=== PATIENT | female | born 1935 | race Caucasian/White ===

== ENCOUNTER → 2017-05-31 13:54 | Outpatient (CLI) | payer MEDICARE, BC ==
[2009-10-29 14:41] VITALS: BMI 27.6
[2017-05-31 14:26] LABS: BASOPHILS 0.1 % (0-2); EOSINOPHILS 0.9 % (0-7); HEMATOCRIT 37.7 % (36.0-48.0); HEMOGLOBIN 12.5 g/dL (12-16); IMMATURE GRANULOCYTES 0.1 % (0-5); LYMPHOCYTES 36.5 % (15-50); MCH 30.6 pg (26.0-34.0); MCHC 33.2 g/dL (31.0-37.0); MCV 92.2 fL (80.0-100.0); MEAN PLATELET VOLUME 9.7 fL (7.4-10.4); MONOCYTES 9.2 % (2-11); NEUTROPHILS 53.2 % (40-80); PLATELET COUNT 175 10x3/uL (130-400); RBC 4.09 10x6/uL (4.00-5.40); RDW 12.3 % (11.5-14.5); WBC 7.1 10x3/uL (4.8-10.8)
[2017-05-31 14:56] LABS: ALBUMIN 3.9 g/dL (3.4-5.0); ALKALINE PHOSPHATASE 90 U/L (46-116); ALT (SGPT) 21 U/L (10-68); CALC OSMOLALITY 287 mosm/kg (275-300); CALCIUM 10.6 mg/dL (8.5-10.1); CARBON DIOXIDE 30.4 mmol/L (21.0-32.0); CHLORIDE - SERUM 107 mmol/L (98-107); CHOL - HDL RATIO 3.3 ratio (2.3-4.1); CHOLESTEROL, TOTAL 143 mg/dL (0-200); CREATININE - SERUM 0.6 mg/dL (0.6-1.3); GLUCOSE 102 mg/dL (74-106); HDL CHOLESTEROL 43 mg/dL (32-96); LDL CHOLESTEROL 73 mg/dL (0-100); LDL-HDL RATIO 1.7 ratio (1.5-3.5); POTASSIUM - SERUM 4.4 mmol/L (3.5-5.1); PROTEIN - SERUM 7.3 g/dL (6.4-8.2); SODIUM 142 mmol/L (136-145); THYROID STIMULATING HORMONE 0.05 uIU/mL (0.36-3.74); TRIGLYCERIDE 138 mg/dL (30-200); UREA NITROGEN 27 mg/dL (7-18); eGFR NON AFRICAN AMERICAN > 90 mL/min (90-120)
== END | disposition home or self-care (01) ==
LOC: D.LAB 08:30
PROVIDERS: Family Medicine
DX: Z00.00 Encounter for general adult medical examination without abnormal findings (principal); I25.10 Atherosclerotic heart disease of native coronary artery without angina pectoris; E55.9 Vitamin D deficiency, unspecified; E78.5 Hyperlipidemia, unspecified; I49.9 Cardiac arrhythmia, unspecified

== ENCOUNTER → 2017-06-30 13:33 | Outpatient (CLI) | payer MEDICARE, BC ==
[2009-10-29 14:41] VITALS: BMI 27.6
[2017-06-30 15:02] LABS: T4 THYROXIN - FREE 0.96 ng/dL (0.76-1.46); THYROID STIMULATING HORMONE 0.1 uIU/mL (0.36-3.74)
== END | disposition home or self-care (01) ==
LOC: D.LAB 13:33
PROVIDERS: Family Medicine
DX: E55.9 Vitamin D deficiency, unspecified (principal); E05.90 Thyrotoxicosis, unspecified without thyrotoxic crisis or storm

== ENCOUNTER → 2017-07-15 14:11 | Outpatient (CLI) | payer MEDICARE, BC ==
[2009-10-29 14:41] VITALS: BMI 27.6
[2017-07-15 15:27] LABS: APPEARANCE CLEAR (CLEAR); COLOR YELLOW (YELLOW); GLUCOSE NEGATIVE (NEGATIVE); KETONE NEGATIVE (NEGATIVE); NITRITE NEGATIVE (NEGATIVE); PROTEIN NEGATIVE (NEGATIVE); UROBILINOGEN NORMAL (NORMAL)
[2017-07-15 15:28] LABS: BILIRUBIN NEGATIVE (NEGATIVE)
[2017-07-15 15:29] LABS: BACTERIA MANY /hpf (NONE SEEN); EPITHELIAL CELLS 0-5 /hpf (0-5); RED CELLS - URINE 0-5 /hpf (0-5); WHITE CELLS - URINE 0-5 /hpf (0-5)
== END | disposition home or self-care (01) ==
LOC: D.LAB 14:11
PROVIDERS: Family Medicine
DX: N39.0 Urinary tract infection, site not specified (principal); M54.5 Low back pain

== ENCOUNTER → 2018-03-31 15:54 | Outpatient (CLI) | payer MEDICARE, BC ==
[2009-10-29 14:41] VITALS: BMI 27.6
== END | disposition home or self-care (01) ==
LOC: D.RAD 15:54
DX: M25.552 Pain in left hip (principal); M25.551 Pain in right hip

== ENCOUNTER → 2018-04-04 12:54 | Outpatient (CLI) | payer MEDICARE, BC ==
[2009-10-29 14:41] VITALS: BMI 27.6
== END | disposition home or self-care (01) ==
LOC: D.RAD 12:54
DX: M25.512 Pain in left shoulder (principal)

== ENCOUNTER → 2018-06-06 09:48 | Outpatient (CLI) | payer MEDICARE, BC ==
[2009-10-29 14:41] VITALS: BMI 27.6
[2018-06-06 10:22] LABS: BASOPHILS 0.2 % (0-2); EOSINOPHILS 0.8 % (0-7); HEMATOCRIT 34.5 % (36.0-48.0); HEMOGLOBIN 11.1 g/dL (12-16); LYMPHOCYTES 32.4 % (15-50); MCH 29.2 pg (26.0-34.0); MCHC 32.2 g/dL (31.0-37.0); MCV 90.8 fL (80.0-100.0); MEAN PLATELET VOLUME 9.8 fL (7.4-10.4); MONOCYTES 10.5 % (2-11); NEUTROPHILS 56.1 % (40-80); PLATELET COUNT 151 10x3/uL (130-400); RDW 13.2 % (11.5-14.5)
[2018-06-06 10:39] LABS: APPEARANCE CLEAR (CLEAR); BILIRUBIN NEGATIVE (NEGATIVE); COLOR DK YELLOW (YELLOW); GLUCOSE NEGATIVE (NEGATIVE); KETONE NEGATIVE (NEGATIVE); NITRITE NEGATIVE (NEGATIVE); PROTEIN NEGATIVE (NEGATIVE); SPECIFIC GRAVITY 1.025 (1.005-1.020); UROBILINOGEN NORMAL (NORMAL)
[2018-06-06 10:48] LABS: ALBUMIN 3.4 g/dL (3.4-5.0); ALKALINE PHOSPHATASE 91 U/L (46-116); ALT (SGPT) 25 U/L (10-68); BILIRUBIN - TOTAL 0.55 mg/dL (0.2-1.3); CALC OSMOLALITY 290 mosm/kg (275-300); CALCIUM 9.3 mg/dL (8.5-10.1); CARBON DIOXIDE 27.8 mmol/L (21.0-32.0); CHLORIDE - SERUM 110 mmol/L (98-107); CHOL - HDL RATIO 2.1 ratio (2.3-4.1); CHOLESTEROL, TOTAL 126 mg/dL (0-200); CREATININE - SERUM 0.6 mg/dL (0.6-1.3); GLUCOSE 86 mg/dL (74-106); HDL CHOLESTEROL 61 mg/dL (32-96); LDL CHOLESTEROL 50 mg/dL (0-100); LDL-HDL RATIO 0.8 ratio (1.5-3.5); POTASSIUM - SERUM 4.1 mmol/L (3.5-5.1); PROTEIN - SERUM 6.7 g/dL (6.4-8.2); SODIUM 143 mmol/L (136-145); THYROID STIMULATING HORMONE 0.17 uIU/mL (0.36-3.74); TRIGLYCERIDE 79 mg/dL (30-200); UREA NITROGEN 31 mg/dL (7-18); eGFR NON AFRICAN AMERICAN > 90 mL/min (90-120)
== END | disposition home or self-care (01) ==
LOC: D.LAB 09:48
PROVIDERS: Family Medicine
DX: Z00.00 Encounter for general adult medical examination without abnormal findings (principal); I25.10 Atherosclerotic heart disease of native coronary artery without angina pectoris; E05.90 Thyrotoxicosis, unspecified without thyrotoxic crisis or storm; E55.9 Vitamin D deficiency, unspecified; R10.9 Unspecified abdominal pain

== ENCOUNTER → 2018-06-08 14:28 | Outpatient (CLI) | payer MEDICARE, BC ==
[2009-10-29 14:41] VITALS: BMI 27.6
[2018-06-08 15:25] LABS: T4 THYROXIN - FREE 0.93 ng/dL (0.76-1.46)
== END | disposition home or self-care (01) ==
LOC: D.LAB 08:00
PROVIDERS: Family Medicine
DX: E05.90 Thyrotoxicosis, unspecified without thyrotoxic crisis or storm (principal)

== ENCOUNTER → 2019-01-10 12:14 | Outpatient (CLI) | payer MEDICARE, BC ==
[2009-10-29 14:41] VITALS: BMI 27.6
[~2019-01-10 12:14] MED LIST: COREG12.5 MG PO; DONEPEZIL HCL5 MG PO; DURAGESIC1 PATCH .7 TRANSDERM; HYDROCODON-ACE1 EA10 PO; LIPITOR80 MG PO; MOBIC7.5 MG PO; PLAVIX75 MG PO; ZESTRIL10 MG PO
[2019-01-10 12:41] LABS: HEMATOCRIT 38.6 % (36.0-48.0); HEMOGLOBIN 12.4 g/dL (12-16); MCH 29.5 pg (26.0-34.0); MCHC 32.1 g/dL (31.0-37.0); MCV 91.9 fL (80.0-100.0); MEAN PLATELET VOLUME 9.9 fL (7.4-10.4); RDW 12.7 % (11.5-14.5); WBC 7.4 10x3/uL (4.8-10.8)
[2019-01-10 12:45] LABS: PLATELET COUNT 208 10x3/uL (130-400)
[2019-01-10 13:01] LABS: APPEARANCE SL CLDY (CLEAR); BILIRUBIN NEGATIVE (NEGATIVE); CALC OSMOLALITY 286 mosm/kg (275-300); CALCIUM 10.2 mg/dL (8.5-10.1); CARBON DIOXIDE 29.8 mmol/L (21.0-32.0); CHLORIDE - SERUM 105 mmol/L (98-107); COLOR YELLOW (YELLOW); CREATININE - SERUM 0.6 mg/dL (0.6-1.3); GLUCOSE 106 mg/dL (74-106); GLUCOSE NEGATIVE (NEGATIVE); KETONE NEGATIVE (NEGATIVE); NITRITE NEGATIVE (NEGATIVE); POTASSIUM - SERUM 4.4 mmol/L (3.5-5.1); PROTEIN NEGATIVE (NEGATIVE); SODIUM 141 mmol/L (136-145); SPECIFIC GRAVITY 1.025 (1.005-1.020); UREA NITROGEN 28 mg/dL (7-18); UROBILINOGEN NORMAL (NORMAL); eGFR NON AFRICAN AMERICAN > 90 mL/min (90-120)
[2019-01-10 13:02] LABS: BACTERIA MANY /hpf (NONE SEEN); MUCUS >1+ /lpf (NONE SEEN); RED CELLS - URINE OCC /hpf (0-5); WHITE CELLS - URINE OCC /hpf (0-5)
[2019-01-10 13:03] LABS: HYALINE CAST OCC /lpf (NONE SEEN)
[2019-01-10 14:04] LABS: LYMPHOCYTES 24 % (15-50); MONOCYTES 6 % (2-11); NEUTROPHILS 51 % (40-80); PLATELET ESTIMATE NORMAL
[2019-01-10 14:05] LABS: ANISOCYTOSIS OCC; ROULEAUX OCC
== END | disposition home or self-care (01) ==
LOC: D.LAB 12:14
PROVIDERS: ATTEND Family Medicine
DX: N30.00 Acute cystitis without hematuria (principal); C43.9 Malignant melanoma of skin, unspecified; J30.9 Allergic rhinitis, unspecified; M48.00 Spinal stenosis, site unspecified

== ENCOUNTER 2019-01-18 09:00 | Day surgery (SDC) | payer MEDICARE, BC ==
[2019-01-17 14:41] LABS: BASOPHILS 0.2 % (0-2); EOSINOPHILS 0.6 % (0-7); HEMATOCRIT 37.4 % (36.0-48.0); HEMOGLOBIN 12.2 g/dL (12-16); IMMATURE GRANULOCYTES 0.2 % (0-5); LYMPHOCYTES 25.5 % (15-50); MCHC 32.6 g/dL (31.0-37.0); MCV 92.1 fL (80.0-100.0); MONOCYTES 9.5 % (2-11); PLATELET COUNT 185 10x3/uL (130-400); RBC 4.06 10x6/uL (4.00-5.40); RDW 12.6 % (11.5-14.5); WBC 6.2 10x3/uL (4.8-10.8)
[2019-01-17 14:58] LABS: ANION GAP 12.3 mmol/L (8-16); CALCIUM 10.5 mg/dL (8.5-10.1); CARBON DIOXIDE 29.2 mmol/L (21.0-32.0); CREATININE - SERUM 1.4 mg/dL (0.6-1.3); POTASSIUM - SERUM 5.5 mmol/L (3.5-5.1)
[2019-01-17 15:47] LABS: APPEARANCE CLEAR (CLEAR); BILIRUBIN NEGATIVE (NEGATIVE); COLOR YELLOW (YELLOW); GLUCOSE NEGATIVE (NEGATIVE); KETONE NEGATIVE (NEGATIVE); NITRITE NEGATIVE (NEGATIVE); PROTEIN NEGATIVE (NEGATIVE); UROBILINOGEN NORMAL (NORMAL)
[2019-01-17 16:02] LABS: APTT 26.6 SECONDS (22.8-39.4); INR 1.09 (0.85-1.17); PROTIME 13.6 SECONDS (11.6-15.0)
[~2019-01-18] VITALS: Ht 152.4 cm; Wt 61.7 kg
--- NOTE | ~2019-01-18 | OP ---
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 POSTOPERATIVE DIAGNOSIS: Lumbar spinal stenosis at L3-L4 and the left secondary to synovial cyst formation and spondylosis. PROCEDURE: Lumbar laminectomy, medial facetectomy and foraminotomy L3-L4 on the left, removed resection of synovial cyst. SURGEON: Amita Marinelli MD DESCRIPTION AND TECHNIQUE: After induction of general endotracheal anesthesia, the patient was rolled prone on a Aydin frame. Lumbar spine was prepped and draped in usual sterile fashion. Fluoroscopic x-ray and spinal needle localized at L3-L4 interspace on the left side. After infiltration of 1:100,000 epinephrine and 1% lidocaine, a stab incision was created in the skin at L3-L4 on the left. A series of dilators were used to advance the METRx retractor at the L3-L4 interspace on the left. The level was confirmed with fluoroscopic x-ray. A microscope and the Midas Randy drill were used to perform laminotomy, medial facetectomy, foraminotomy at L3-L4 on the left. Hypertrophied ligamentum flavum was removed with Cloward rongeurs. In the process of removing the ligamentum flavum, synovial cyst encountered. This was carefully dissected away from the dura with a Rhoton microdissectors. Good decompression of the left L3 and L4 nerve roots was obtained. Meticulous hemostasis was maintained throughout the wound. The wound was irrigated with copious amounts of Ancef irrigant solution. The fascia was closed with 3-0 Vicryl suture, the subdermal layer was closed with 3-0 Vicryl suture. The skin was closed with jeanna. A sterile dressing was applied to the wound. The patient was awakened in good condition, taken to recovery. All counts were reported as correct. Estimated blood loss was minimal. TRANSINT:[id number] Voice Confirmation ID: [id number] DOCUMENT ID: [id number] AMITA MARINELLI MD CC: [id number] DICTATION DATE: 01/22/19 0738 PERSONAL DEVELOPMENT COACH: 01/22/1909 [facility] 01/18/[address] [place] [address]
[2019-01-18 10:43] VITALS: Ht 152.4 cm; Wt 61.7 kg
--- NOTE | 2019-01-18 13:39 | NUR ---
PATIENT HAS BANDAID ON RIGHT CHECK, STATED HAD MELANOMA CUT OFF, ALSO HAS ONE ON LEFT ARM, BRUISING NOTED ON LEFT LOWER CHIN AREA, YELITZARMAGY.
--- NOTE | 2019-01-18 15:59 | NUR ---
1525-RECD TO ROOM, DROWSY, AROUSES EASILY. DENIES PAIN. O2 ON AT 2L PER NC. 1550-DR BARNETT IN TO SEE PATIENT AND FAMILY.
[2019-01-18] MEDS ORDERED: HYDROCODON-ACE1 EA10 PO ×2 (17:07→17:08)
--- NOTE | 2019-01-18 17:20 | NUR ---
PATIENT AMBULATES TO BATHROOM WITH STAND-BY ASSIST AND VOIDS LARGE AMOUNT IN TOILET WITHOUT DIFFICULTY. RIGHT ARM PIV DC'D WITH TIP INTACT. PATIETN DRESSING IN PERSONAL CLOTHIGN WITH DAUGHTER'S ASSISTANCE
== END 2019-01-18 17:45 | disposition home or self-care (01) ==
LOC: D.OPS 09:00
PROVIDERS: Anesthesiology; ATTEND Neurological Surgery
DX: M48.061 Spinal stenosis, lumbar region without neurogenic claudication (principal); M71.38 Other bursal cyst, other site; M47.896 Other spondylosis, lumbar region; Z01.812 Encounter for preprocedural laboratory examination

== ENCOUNTER → 2019-02-28 15:40 | Outpatient (CLI) | payer MEDICARE, BC ==
[2019-01-18 10:43] VITALS: BMI 26.6
== END | disposition home or self-care (01) ==
LOC: D.MRI 15:30
PROVIDERS: ATTEND Orthopaedic Surgery
DX: R22.42 Localized swelling, mass and lump, left lower limb (principal)

== ENCOUNTER → 2019-04-25 12:10 | Outpatient (CLI) | payer MEDICARE, BC ==
[2019-01-18 10:43] VITALS: BMI 26.6
[2019-04-25 12:51] LABS: BASOPHILS 0.1 % (0-2); EOSINOPHILS 0.5 % (0-7); HEMATOCRIT 37.8 % (36.0-48.0); HEMOGLOBIN 12.5 g/dL (12-16); IMMATURE GRANULOCYTES 0.1 % (0-5); LYMPHOCYTES 30.8 % (15-50); MCH 29.9 pg (26.0-34.0); MCHC 33.1 g/dL (31.0-37.0); MCV 90.4 fL (80.0-100.0); MEAN PLATELET VOLUME 10.3 fL (7.4-10.4); MONOCYTES 9.5 % (2-11); PLATELET COUNT 161 10x3/uL (130-400); RBC 4.18 10x6/uL (4.00-5.40); RDW 12.4 % (11.5-14.5); WBC 8.5 10x3/uL (4.8-10.8)
[2019-04-25 13:03] LABS: ANION GAP 10.5 mmol/L (8-16); BILIRUBIN - TOTAL 0.61 mg/dL (0.2-1.3); CALCIUM 10.9 mg/dL (8.5-10.1); CARBON DIOXIDE 27.9 mmol/L (21.0-32.0); CREATININE - SERUM 2.1 mg/dL (0.6-1.3); POTASSIUM - SERUM 5.4 mmol/L (3.5-5.1); PROTEIN - SERUM 7.2 g/dL (6.4-8.2)
== END | disposition home or self-care (01) ==
LOC: D.LAB 12:10
PROVIDERS: ATTEND Family Medicine
DX: R11.0 Nausea (principal); C43.9 Malignant melanoma of skin, unspecified; M47.812 Spondylosis without myelopathy or radiculopathy, cervical region; G60.9 Hereditary and idiopathic neuropathy, unspecified

== ENCOUNTER → 2019-05-04 10:09 | Outpatient (CLI) | payer MEDICARE, BC ==
[2019-01-18 10:43] VITALS: BMI 26.6
[2019-05-04 10:50] LABS: ANION GAP 8.1 mmol/L (8-16); CALCIUM 10.3 mg/dL (8.5-10.1); CARBON DIOXIDE 30.3 mmol/L (21.0-32.0); CREATININE - SERUM 0.9 mg/dL (0.6-1.3); POTASSIUM - SERUM 4.4 mmol/L (3.5-5.1)
== END | disposition home or self-care (01) ==
LOC: D.LAB 10:09
PROVIDERS: ATTEND Family Medicine
DX: R94.5 Abnormal results of liver function studies (principal)

== ENCOUNTER 2020-05-08 10:29 | Emergency (ER) | payer MEDICARE, BC ==
[~2020-05-08] VITALS: Ht 152.4 cm; Wt 50.0 kg
[2020-05-08 10:33] VITALS: Ht 152.4 cm; Wt 50.0 kg
[2020-05-08 12:35] VITALS: BP 128/58
== END 2020-05-08 12:35 | disposition home or self-care (01) ==
LOC: D.ER 10:29
DX: S01.01XA Laceration without foreign body of scalp, initial encounter (principal); V89.2XXA Person injured in unspecified motor-vehicle accident, traffic, initial encounter; Y93.9 Activity, unspecified; Y92.9 Unspecified place or not applicable

== ENCOUNTER → 2020-12-16 13:43 | Outpatient (CLI) | payer MEDICARE, BC ==
[2020-05-08 10:33] VITALS: BMI 21.5
[2020-12-16 14:46] LABS: BILIRUBIN NEGATIVE (NEGATIVE); KETONE NEGATIVE (NEGATIVE); NITRITE NEGATIVE (NEGATIVE); UROBILINOGEN NORMAL mg/dL (< 2); WHITE CELLS - URINE 0-5 HPF (0-4)
[2020-12-16 14:47] LABS: BACTERIA MODERATE HPF (NONE SEEN)
[2020-12-16 14:54] LABS: ALBUMIN 3.9 g/dL (3.4-5.0); ANION GAP 8.2 mmol/L (8-16); BILIRUBIN - TOTAL 0.42 mg/dL (0.2-1.3); CALCIUM 10.2 mg/dL (8.5-10.1); CHOL - HDL RATIO 2.5 ratio (2.3-4.1); CREATININE - SERUM 0.9 mg/dL (0.6-1.3); LDL-HDL RATIO 1.1 ratio (1.5-3.5); POTASSIUM - SERUM 4.2 mmol/L (3.5-5.1); PROTEIN - SERUM 6.9 g/dL (6.4-8.2); THYROID STIMULATING HORMONE 0.05 uIU/mL (0.36-3.74)
[2020-12-16 16:01] LABS: BASOPHILS 0.2 % (0-2); EOSINOPHILS 0.8 % (0-7); ERYTHROCYTE SEDIMENTATION RATE 34 mm/hr (0-42); HEMATOCRIT 34.1 % (36.0-48.0); HEMOGLOBIN 10.5 g/dL (12-16); LYMPHOCYTE ABS# 2.31 10x3/uL (1.18-3.74); LYMPHOCYTES 36.4 % (15-50); MCH 26.6 pg (26.0-34.0); MCHC 30.8 g/dL (31.0-37.0); MCV 86.5 fL (80.0-100.0); MEAN PLATELET VOLUME 9.7 fL (7.4-10.4); MONOCYTES 10.7 % (2-11); NEUTROPHILS 51.9 % (40-80); PLATELET COUNT 232 10x3/uL (130-400); RBC 3.94 10x6/uL (4.00-5.40); RDW 13.6 % (11.5-14.5); WBC 6.4 10x3/uL (4.8-10.8)
== END | disposition home or self-care (01) ==
LOC: D.LAB 13:43
PROVIDERS: ATTEND Family Medicine
DX: I25.10 Atherosclerotic heart disease of native coronary artery without angina pectoris (principal); M54.5 Low back pain; I10 Essential (primary) hypertension; M19.90 Unspecified osteoarthritis, unspecified site; Z00.00 Encounter for general adult medical examination without abnormal findings